=== PATIENT | female | born 1965 | race Caucasian/White ===

== ENCOUNTER 2021-09-04 13:15 | Inpatient (IN) | payer MEDICARE ==
[~2021-09-04] VITALS: Ht 162.6 cm; Wt 81.6 kg
[2021-09-04 14:20] LABS: HEMOGLOBIN 14.8 gm/dl (12.3-15.3); RED BLOOD COUNT 4.89 M/UL (4.00-5.10); WHITE BLOOD COUNT 12.7 K/UL (4.5-11.0)
[2021-09-04 14:54] LABS: BUN/CREATININE RATIO 21 (0-10)
[2021-09-04] MEDS ORDERED: COREG6.25 MG PO (20:08)
[2021-09-04] MEDS ORDERED: NEURONTIN600 MG PO ×2 (20:09)
[2021-09-04] MEDS ORDERED: NEURONTIN800 MG PO (20:10)
[2021-09-04] MEDS ORDERED: LISINOPRIL20 MG PO (20:10)
[2021-09-04] MEDS ORDERED: BETAPACE80 MG PO (20:12)
[2021-09-04] MEDS ORDERED: CRESTOR5 MG PO (20:12)
[2021-09-04] MEDS ORDERED: TRAZODONE HCL100 MG PO (20:13)
[2021-09-04] MEDS ORDERED: ASPIRIN 325MG325 MG PO (20:13)
[2021-09-05 05:17] LABS: HEMOGLOBIN 13.6 gm/dl (12.3-15.3); RED BLOOD COUNT 4.49 M/UL (4.00-5.10); WHITE BLOOD COUNT 14.1 K/UL (4.5-11.0)
[2021-09-05 05:41] LABS: BUN/CREATININE RATIO 20 (0-10)
[2021-09-06 05:32] LABS: HEMOGLOBIN 13.5 gm/dl (12.3-15.3); RED BLOOD COUNT 4.69 M/UL (4.00-5.10); WHITE BLOOD COUNT 8.4 K/UL (4.5-11.0)
[2021-09-06 06:08] LABS: BUN/CREATININE RATIO 17 (0-10)
[2021-09-06] MEDS ORDERED: BETAPACE 80MG T80 MG PO (10:48)
[2021-09-06] MEDS ORDERED: ASPIRIN EC81 MG PO (10:48)
[2021-09-06] MEDS ORDERED: LISINOPRIL5 MG PO (10:48)
[2021-09-06] MEDS ORDERED: ELIQUIS 5 MG TAB5 MG PO (10:48)
== END 2021-09-06 13:50 | disposition home or self-care (01) | DRG 308 ==
LOC: ER1 13:15 → CCU 17:01 → CDU 17:01 → CCU 19:27
PROVIDERS: Physician Assistant Medical; ADMIT Internal Medicine
DX: I48.0 Paroxysmal atrial fibrillation (principal); I50.23 Acute on chronic systolic (congestive) heart failure; J90 Pleural effusion, not elsewhere classified; I42.8 Other cardiomyopathies; I11.0 Hypertensive heart disease with heart failure; Z20.822 Contact with and (suspected) exposure to COVID-19; F17.210 Nicotine dependence, cigarettes, uncomplicated; G62.9 Polyneuropathy, unspecified; Z90.710 Acquired absence of both cervix and uterus; Z79.899 Other long term (current) drug therapy; Z91.14 Patient's other noncompliance with medication regimen; Z95.810 Presence of automatic (implantable) cardiac defibrillator; Z82.49 Family history of ischemic heart disease and other diseases of the circulatory system; Z80.9 Family history of malignant neoplasm, unspecified
CPT/HCPCS: ECHO; 36415; 71045; 80048; 80053; 82550; 82553; 83735; 83874; 83880; 84439; 84443; 84484; 85025; 85027; 92960; 93005; 93306; 99285; J1650; J2704; U0002

== ENCOUNTER 2021-09-13 09:25 | Inpatient (IN) | payer MEDICARE, OTHER ==
[~2021-09-13] VITALS: Ht 162.6 cm; Wt 81.6 kg
[~2021-09-13 09:25] MED LIST: ASPIRIN 325MG325 MG PO; ASPIRIN EC81 MG PO; BETAPACE 80MG T80 MG PO; BETAPACE80 MG PO; COREG6.25 MG PO; CRESTOR5 MG PO; ELIQUIS 5 MG TAB5 MG PO; LISINOPRIL20 MG PO; LISINOPRIL5 MG PO; NEURONTIN600 MG PO; NEURONTIN800 MG PO; TRAZODONE HCL100 MG PO
[2021-09-13 09:57] LABS: HEMOGLOBIN 13.6 gm/dl (12.3-15.3); RED BLOOD COUNT 4.57 M/UL (4.00-5.10); WHITE BLOOD COUNT 10.4 K/UL (4.5-11.0)
[2021-09-13 10:27] LABS: BUN/CREATININE RATIO 27 (0-10)
[2021-09-13] MEDS ORDERED: GABAPENTIN800 MG PO (13:35)
[2021-09-13] MEDS ORDERED: LASIX40 MG PO (13:42)
[2021-09-13] MEDS ORDERED: NEURONTIN600 MG PO (20:09)
[2021-09-14 05:06] LABS: HEMOGLOBIN 12.7 gm/dl (12.3-15.3); RED BLOOD COUNT 4.37 M/UL (4.00-5.10); WHITE BLOOD COUNT 11.8 K/UL (4.5-11.0)
[2021-09-14 05:31] LABS: BUN/CREATININE RATIO 26 (0-10)
[2021-09-15 04:37] LABS: BUN/CREATININE RATIO 23 (0-10)
[2021-09-16 03:11] LABS: BUN/CREATININE RATIO 20 (0-10)
== END 2021-09-16 14:15 | disposition left against medical advice (07) | DRG 291 ==
LOC: ER1 09:25 → CDU 12:00 → PROG CARE 16:01 → CCU 09-14 17:33 → PROG CARE 09-15 13:28
PROVIDERS: Emergency Medicine; Physician Assistant; ADMIT Internal Medicine Infectious Disease
DX: I11.0 Hypertensive heart disease with heart failure (principal); I50.23 Acute on chronic systolic (congestive) heart failure; I48.0 Paroxysmal atrial fibrillation; J96.01 Acute respiratory failure with hypoxia; I47.2 Ventricular tachycardia; J44.1 Chronic obstructive pulmonary disease with (acute) exacerbation; Z20.822 Contact with and (suspected) exposure to COVID-19; I34.0 Nonrheumatic mitral (valve) insufficiency; F17.210 Nicotine dependence, cigarettes, uncomplicated; R73.9 Hyperglycemia, unspecified; E66.9 Obesity, unspecified; G47.33 Obstructive sleep apnea (adult) (pediatric); I42.8 Other cardiomyopathies; Z95.810 Presence of automatic (implantable) cardiac defibrillator; Z91.14 Patient's other noncompliance with medication regimen; Z90.710 Acquired absence of both cervix and uterus; Z79.01 Long term (current) use of anticoagulants; Z79.82 Long term (current) use of aspirin; Z82.49 Family history of ischemic heart disease and other diseases of the circulatory system; Z80.9 Family history of malignant neoplasm, unspecified; Z71.3 Dietary counseling and surveillance; Z68.30 Body mass index [BMI] 30.0-30.9, adult
CPT/HCPCS: 0240U; 36415; 71045; 80048; 80053; 82550; 82553; 83036; 83605; 83735; 83874; 83880; 84484; 85025; 87040; 93005; 94640; 94664; 94760; 96374; 96375; 96376; 99285; G0378; J1160; J1940; J3475